=== PATIENT | male | born 1960 | race Caucasian/White ===

== ENCOUNTER → 2016-10-10 | Outpatient (CLI) | payer BC ==
--- NOTE | 2016-10-10 11:09 | DIAGNOSTIC IMAGING REPORT ---
CT CHEST COMBO ANGIOGRAPHY CT DOSE: 1408.71 mGy.cm CLINICAL HISTORY: Thoracic aortic aneurysm TECHNIQUE: Unenhanced images were obtained through the chest. The patient was then scanned in a dynamic helical fashion during intravenous administration of 93 cc of Optiray 320. MIP imaging was performed. A dose lowering technique was utilized adhering to the principles of ALARA. COMPARISON STUDY: Chest x-ray dated 03/29/2017 FINDINGS: Unenhanced images reveal no evidence of acute aortic hematoma. There is a coronary artery stent present. There is a 19 mm left adrenal adenoma. Postcontrast studies reveal aneurysmal dilatation of the ascending thoracic aorta which measures 4.8 cm. There is no evidence of dissection. There are no pathologically enlarged axillary, mediastinal, or hilar lymph nodes. There are no pleural effusions. There is no focal pulmonary consolidation. There is a nonspecific 11 mm sclerotic lesion involving the T1 vertebra. IMPRESSION: 1. 4.8 cm ascending thoracic aortic aneurysm. No evidence of dissection 2. 19 mm left adrenal adenoma 3. Nonspecific 11 mm sclerotic lesion involving the T1 vertebra Electronically signed by: Nikko Virgen M.D. 10/10/2016 11:07 AM Dictated Date/Time: 10/10/2016 11:01 AM
== END | disposition home or self-care (01) ==
LOC: C.CTS 09:59
PROVIDERS: ATTEND Family Medicine
DX: I71.2 Thoracic aortic aneurysm, without rupture (principal); I25.10 Atherosclerotic heart disease of native coronary artery without angina pectoris; E11.9 Type 2 diabetes mellitus without complications; D35.00 Benign neoplasm of unspecified adrenal gland; M85.88 Other specified disorders of bone density and structure, other site